=== PATIENT | male | born 1990 | race Caucasian/White ===

== ENCOUNTER → 2021-07-29 | Outpatient (CLI) | payer BC, OTHER | LOC: HEART 5 13:30 | DX: R07.9 Chest pain, unspecified (principal); R00.0 Tachycardia, unspecified ==

== ENCOUNTER 2022-04-12 15:27 | Inpatient (IN) | payer OTHER ==
[~2022-04-12] VITALS: Ht 198.1 cm; Wt 166.5 kg
[2022-04-12 16:18] LABS: RED BLOOD COUNT 5.33 M/UL (4.20-5.50); WHITE BLOOD COUNT 9.8 K/UL (4.5-11.0)
[2022-04-12 17:13] LABS: BUN/CREATININE RATIO 17 (0-10)
[2022-04-12] MEDS ORDERED: BUPROPION XL150 MG PO (18:44)
[2022-04-12] MEDS ORDERED: FLUCONAZOLE150 MG PO (18:44)
[2022-04-12] MEDS ORDERED: CARVEDILOL6.25 MG PO (18:44)
[2022-04-12] MEDS ORDERED: IBU400 MG PO (18:45)
[2022-04-12] MEDS ORDERED: HYDROCREAM28.4 GM TOP (18:45)
[2022-04-12] MEDS ORDERED: LORATADINE10 MG PO (18:45)
[2022-04-12] MEDS ORDERED: LISINOPRIL20 MG PO (18:45)
[2022-04-12] MEDS ORDERED: METFORMIN HCL1000 MG PO (18:46)
[2022-04-12] MEDS ORDERED: MONTELUKAST SOD10 MG PO (18:46)
[2022-04-12] MEDS ORDERED: ACTOS30 MG PO (18:46)
[2022-04-12] MEDS ORDERED: ROPINIROLE HCL1 MG PO (18:46)
[2022-04-12] MEDS ORDERED: PROTONIX 40 MG40 M1 PO (18:46)
[2022-04-12 20:38] LABS: BUN/CREATININE RATIO 16 (0-10)
[2022-04-13 01:50] LABS: BUN/CREATININE RATIO 14 (0-10)
[2022-04-13 05:17] LABS: BUN/CREATININE RATIO 14 (0-10)
[2022-04-13 08:30] LABS: BUN/CREATININE RATIO 12 (0-10)
[2022-04-14 07:18] LABS: RED BLOOD COUNT 4.44 M/UL (4.20-5.50); WHITE BLOOD COUNT 5.1 K/UL (4.5-11.0)
[2022-04-14 07:42] LABS: BUN/CREATININE RATIO 8 (0-10)
[2022-04-15 10:27] LABS: HEMOGLOBIN 12.1 gm/dl (14.0-17.5); RED BLOOD COUNT 4.35 M/UL (4.20-5.50); WHITE BLOOD COUNT 4.9 K/UL (4.5-11.0)
[2022-04-15 10:50] LABS: BUN/CREATININE RATIO 9 (0-10)
[2022-04-16 09:40] LABS: HEMOGLOBIN 12.3 gm/dl (14.0-17.5); RED BLOOD COUNT 4.44 M/UL (4.20-5.50); WHITE BLOOD COUNT 4.6 K/UL (4.5-11.0)
[2022-04-16 10:18] LABS: BUN/CREATININE RATIO 8 (0-10)
[2022-04-16] MEDS ORDERED: PATIENT'S OWN MEDICA PO (16:03)
[2022-04-16] MEDS ORDERED: NYSTATIN60 GM EXT (16:03)
[2022-04-16] MEDS ORDERED: FENOFIBRATE145 MG PO (16:11)
[2022-04-16] MEDS ORDERED: NICOTINE PATCH1 EAC1 TOP (16:11)
[2022-04-16] MEDS ORDERED: CEFUROXIME250 MG PO (16:11)
[2022-04-16] MEDS ORDERED: LISINOPRIL5 MG PO (16:17)
[2022-04-16] MEDS ORDERED: POTASSIUM CHLO20 ME1 PO (17:17)
--- NOTE | 2022-04-16 18:40 | NUR ---
[id number] [facility], spoke with Demi.
== END 2022-04-16 19:30 | disposition home health service (06) | DRG 638 ==
LOC: ER1 15:27 → CCU 18:27 → CDU 18:27 → CCU 20:49 → MED SURG 4 04-14 20:42
PROVIDERS: Emergency Medicine; Internal Medicine; Internal Medicine Critical Care Medicine; Physician Assistant Medical; ADMIT Internal Medicine Infectious Disease
DX: E11.10 Type 2 diabetes mellitus with ketoacidosis without coma (principal); N30.00 Acute cystitis without hematuria; Z68.42 Body mass index [BMI] 45.0-49.9, adult; E86.0 Dehydration; Z20.822 Contact with and (suspected) exposure to COVID-19; I10 Essential (primary) hypertension; K21.9 Gastro-esophageal reflux disease without esophagitis; F41.9 Anxiety disorder, unspecified; E66.01 Morbid (severe) obesity due to excess calories; F17.210 Nicotine dependence, cigarettes, uncomplicated; R63.1 Polydipsia; F32.A Depression, unspecified; G47.33 Obstructive sleep apnea (adult) (pediatric); R74.01 Elevation of levels of liver transaminase levels; R35.89 Other polyuria; E87.6 Hypokalemia; Z90.49 Acquired absence of other specified parts of digestive tract; Z83.3 Family history of diabetes mellitus
CPT/HCPCS: 36415; 71045; 80048; 80053; 80061; 81001; 82009; 82803; 82962; 83036; 83605; 83735; 84132; 84484; 85025; 87086; 93005; 96374; 96375; 96376; 99285; G0378; J0696; J1650; U0002